=== PATIENT | female | born 1945 | race Caucasian/White ===

== ENCOUNTER 2018-07-11 16:21 | Emergency (ER) | payer MEDICARE, OTHER ==
[~2018-07-11] VITALS: Ht 154.9 cm; Wt 74.1 kg
[2018-07-11] MEDS ORDERED: BIOTIN10000 MC1 PO (16:31)
[2018-07-11] MEDS ORDERED: HUMIRA40 MG/0.1 SQ (16:31)
[2018-07-11] MEDS ORDERED: CALCIUM CARBON650 M2 (16:31)
[2018-07-11] MEDS ORDERED: LIPITOR20 MG PO (16:31)
[2018-07-11] MEDS ORDERED: ATARAX 10MG10 MG/TAB PO (16:32)
[2018-07-11] MEDS ORDERED: VOLTAREN GEL 1%1 TU TP (16:32)
[2018-07-11] MEDS ORDERED: FERROUS SU325 MG/TAB PO (16:32)
[2018-07-11] MEDS ORDERED: PRINIVIL10 MG PO (16:33)
[2018-07-11] MEDS ORDERED: GLUCOPHAGE500 MG/TAB PO (16:33)
[2018-07-11] MEDS ORDERED: MULTI VITAMINS1 TAB PO (16:34)
[2018-07-11] MEDS ORDERED: OSTEO-BI-FLEX 21 TAB PO (16:34)
[2018-07-11] MEDS ORDERED: TOPROL XL 25MG25 MG PO (16:34)
[2018-07-11] MEDS ORDERED: NATURAL POTASS595 MG (16:35)
[2018-07-11] MEDS ORDERED: DITROPAN 5MG TAB5 MG PO (16:35)
[2018-07-11] MEDS ORDERED: NASACORT OTC NS (16:37)
[2018-07-11] MEDS ORDERED: EFFEXOR 75M75 MG/TAB PO (16:37)
[2018-07-11] MEDS ORDERED: TRIAMCINOLONE A15 G3 TP (16:37)
[2018-07-11] MEDS ORDERED: CRANBERRY500 M3 PO (16:38)
[2018-07-11] MEDS ORDERED: AYR SALINE MIST50 ML NS (16:42)
[2018-07-11] MEDS ORDERED: VITAMIN D31000 I1 PO (16:42)
[2018-07-11] MEDS ORDERED: VITAMIND3 5000 (16:43)
[2018-07-11 17:01] LABS: BASO # 0.1 (0.0-0.2); BASO % 0.6 % (0.0-2.0); EOS # 0.2 (0.0-0.7); EOS % 2.6 % (0-4.0); GRAN # 5.1 (1.4-6.5); GRAN % 59.5 % (42.2-75.2); HEMOGLOBIN 11.8 g/dl (12.5-16.0); LYMPH # 2.5 (1.2-3.4); LYMPH % 29.5 % (20.0-51.0); MEAN CELL VOLUME 93 fl (80.0-100.0); MEAN CORPUSCULAR HEMOGLOBIN 30 pg (27.0-31.0); MEAN CORPUSCULAR HGB CONC 33 g/dl (33.0-37.0); MEAN PLATELET VOLUME 10.2 fl (7.4-10.4); MONO # 0.7 (0.1-0.6); MONO % 7.6 % (1.7-9.3); PLATELET COUNT 232 K/mm3 (130-400); RED BLOOD COUNT 3.88 M/mm3 (4.10-5.30); REDCELL DISTRIBUTION WIDTH-CV 13.3 % (11.5-14.5)
[2018-07-11 17:09] LABS: PROTHROMBIN TIME 11.3 SECONDS (9.7-12.8)
[2018-07-11 17:15] LABS: HEMATOCRIT 36.1 % (37.0-47.0)
[2018-07-11 17:42] LABS: ALBUMIN 4.1 gm/dL (3.5-5.0); BILIRUBIN,TOTAL 0.3 mg/dL (0.0-1.0); CALCIUM 9.1 mg/dL (8.4-10.2); CREATININE, serum 0.72 mg/dL (0.52-1.25); POTASSIUM 4.1 mmol/L (3.4-5.0); TOTAL PROTEIN 6.9 gm/dL (6.4-8.2)
[2018-07-11 18:51] VITALS: BP 153/70; PULSE 80; TEMP 98.7
== END 2018-07-11 18:53 | disposition home or self-care (01) ==
LOC: COL.ER 16:21
PROVIDERS: Emergency Medicine
DX: R04.0 Epistaxis (principal); I25.10 Atherosclerotic heart disease of native coronary artery without angina pectoris
CPT/HCPCS: J2060

== ENCOUNTER 2018-09-16 07:21 | Day surgery (SDC) | payer MEDICARE, OTHER ==
[2018-09-16] VITALS (10 sets, daily range): BP systolic 142–177; BP diastolic 78–94; PULSE 66–83; TEMP 98.2
[~2018-09-16] VITALS: Ht 155 cm; Wt 75.3 kg
[~2018-09-16 07:21] MED LIST: ATARAX 10MG10 MG/TAB PO; AYR SALINE MIST50 ML NS; BIOTIN10000 MC1 PO; CALCIUM CARBON650 M2; CRANBERRY500 M3 PO; DITROPAN 5MG TAB5 MG PO; EFFEXOR 75M75 MG/TAB PO; FERROUS SU325 MG/TAB PO; GLUCOPHAGE500 MG/TAB PO; HUMIRA40 MG/0.1 SQ; LIPITOR20 MG PO; MULTI VITAMINS1 TAB PO; NASACORT OTC NS; NATURAL POTASS595 MG; OSTEO-BI-FLEX 21 TAB PO; PRINIVIL10 MG PO; TOPROL XL 25MG25 MG PO; TRIAMCINOLONE A15 G3 TP; VITAMIN D31000 I1 PO; VITAMIND3 5000; VOLTAREN GEL 1%1 TU TP
[2018-09-16 08:11] LABS: HEMATOCRIT 39.4 % (37.0-47.0); MEAN CELL VOLUME 91 fl (80.0-100.0); MEAN CORPUSCULAR HEMOGLOBIN 30 pg (27.0-31.0); MEAN CORPUSCULAR HGB CONC 33 g/dl (33.0-37.0); MEAN PLATELET VOLUME 10.4 fl (7.4-10.4); PLATELET COUNT 224 K/mm3 (130-400); RED BLOOD COUNT 4.33 M/mm3 (4.10-5.30); REDCELL DISTRIBUTION WIDTH-CV 12.9 % (11.5-14.5)
[2018-09-16 08:26] LABS: INR 1.1 (0.8-3.0)
[2018-09-16 08:29] LABS: CALCIUM 9.3 mg/dL (8.4-10.2); CREATININE, serum 0.69 mg/dL (0.52-1.25); POTASSIUM 3.9 mmol/L (3.4-5.0)
--- NOTE | 2018-09-16 09:24 | NUR ---
ALL SEDATION MEDICATIONS WILL BE GIVEN WITH VERBAL ORDER FROM MD FLETCHER. SEE MERGE FOR ADMIN TIMES. SEE MERGE FOR RASS AND MODERATE SEDATION ASSESSMENTS DURING AND POST PROCEDURE.
--- NOTE | 2018-09-16 09:51 | NUR ---
Back from test lab technician. Drowsy but oriented. VSS. Right wrist Tband with 13 cc air CD&I, cap refill < 3 secs and strong pulses.
--- NOTE | 2018-09-16 13:03 | NUR ---
TR band deflated, no bleeding noted, pressure dressing applied. INT discontinued intact.
--- NOTE | 2018-09-16 13:15 | NUR ---
Discharge instructions given. Transferred to private car by alise
== END 2018-09-16 13:15 | disposition home or self-care (01) ==
LOC: COL.CAR 07:21
PROVIDERS: Internal Medicine Cardiovascular Disease
DX: I25.10 Atherosclerotic heart disease of native coronary artery without angina pectoris (principal); R94.39 Abnormal result of other cardiovascular function study; E78.5 Hyperlipidemia, unspecified; I10 Essential (primary) hypertension; Z88.1 Allergy status to other antibiotic agents; Z88.5 Allergy status to narcotic agent; Z88.0 Allergy status to penicillin; Z88.2 Allergy status to sulfonamides; Z95.5 Presence of coronary angioplasty implant and graft
CPT/HCPCS: C1769; C1894; J1644; J2250; J3010; Q9967

== ENCOUNTER 2018-10-20 08:10 | Day surgery (SDC) | payer MEDICARE, OTHER ==
[~2018-10-20] VITALS: Ht 154.9 cm; Wt 74.3 kg
[2018-10-20 08:37] VITALS: BP 185/95; PULSE 70; TEMP 97.5
--- NOTE | 2018-10-20 09:15 | NUR ---
DAUGHTER HERE AND DISCUSSED HAVING PROCEDURE. PATIENT STATED SHE WAS SO WORRIED ABOUT THE RESULTS THAN HAVING THE PROCEDURE. CURRENTLY TALKING WITH SON ON THE PHONE
--- NOTE | 2018-10-20 09:16 | NUR ---
TO RM 1 AT 0715- CALL LIGHT IN REACH DAUGHTER AT BEDSIDE.
[2018-10-20 10:25] VITALS: BP 146/72; PULSE 82; TEMP 98.3
--- NOTE | 2018-10-20 10:25 | NUR ---
TO BAY 1 PER CART FROM ENDOSCOPY. PATIENT VERY PLEASANT AND RELAXED. AMBULATED TO RECLINER WITH ASSIST AND TOLERATED WELL. DAUGHTER AT BEDSIDE
[2018-10-20 10:40] VITALS: BP 162/80; PULSE 79
--- NOTE | 2018-10-20 10:40 | NUR ---
RECEIVED DIET PEPSI
--- NOTE | 2018-10-20 11:17 | NUR ---
ATE 100% AND RECEIVED 2ND DIET PEPSI
--- NOTE | 2018-10-20 11:18 | NUR ---
DISCONTINED IV AND INT- CATHETER INTACT PATIENT GETTING DRESSED
--- NOTE | 2018-10-20 11:23 | NUR ---
DR LEONG TALKING TO PATIENT AND DAUGHTER
--- NOTE | 2018-10-20 11:30 | NUR ---
RECEIVED DISCHARGE INSTRUCTIONS AND VERBALIZED UNDERSTANDING. DAUGHTER SANCHO AT BEDSIDE.
--- NOTE | 2018-10-20 11:40 | NUR ---
DISCHARGED PER WC BY NURSING STAFF TO PRIVATE CAR IN CARE OF DAUGHTER
== END 2018-10-20 11:40 | disposition home or self-care (01) ==
LOC: SDCO 08:10
DX: K64.4 Residual hemorrhoidal skin tags (principal); I25.10 Atherosclerotic heart disease of native coronary artery without angina pectoris; Z95.5 Presence of coronary angioplasty implant and graft; Z85.828 Personal history of other malignant neoplasm of skin; L40.9 Psoriasis, unspecified; Z79.899 Other long term (current) drug therapy; Z88.0 Allergy status to penicillin; Z88.2 Allergy status to sulfonamides
CPT/HCPCS: OP; J2250; J2405; J3010; J7030

== ENCOUNTER 2019-10-19 09:26 | Emergency (ER) | payer MEDICARE, OTHER ==
[~2019-10-19] VITALS: Ht 154.9 cm; Wt 75.0 kg
[2019-10-19 09:37] VITALS: TEMP 97.7
[2019-10-19 09:52] LABS: BASO # 0.1 (0.0-0.2); BASO % 0.5 % (0.0-2.0); EOS # 0.3 (0.0-0.7); GRAN # 5.6 (1.4-6.5); GRAN % 59.2 % (42.2-75.2); HEMATOCRIT 43.4 % (37.0-47.0); HEMOGLOBIN 14.9 g/dl (12.5-16.0); LYMPH # 2.7 (1.2-3.4); LYMPH % 28.8 % (20.0-51.0); MEAN CELL VOLUME 92 fl (80.0-100.0); MEAN CORPUSCULAR HEMOGLOBIN 32 pg (27.0-31.0); MEAN CORPUSCULAR HGB CONC 34 g/dl (33.0-37.0); MEAN PLATELET VOLUME 9.9 fl (7.4-10.4); MONO # 0.8 (0.1-0.6); MONO % 7.9 % (1.7-9.3); PLATELET COUNT 207 K/mm3 (130-400); REDCELL DISTRIBUTION WIDTH-CV 12.9 % (11.5-14.5)
[2019-10-19 10:01] LABS: ALANINE AMINOTRANSFERASE 24 U/L (4-34); ALBUMIN 4.8 gm/dL (3.5-5.0); ALKALINE PHOSPHATASE 112 U/L (50-136); ANION GAP 12 mmol/L (7-16); AST,SGOT 32 U/L (15-37); BILIRUBIN,TOTAL 0.8 mg/dL (0.0-1.0); BLOOD UREA NITROGEN 20 mg/dL (7-17); CALCIUM 9.7 mg/dL (8.4-10.2); CARBON DIOXIDE 26 mmol/L (22-30); CHLORIDE 98 mmol/L (98-107); CREATININE, serum 0.65 (0.52-1.25); GLUCOSE 139 mg/dL (74-106); SODIUM 136 mmol/L (137-145); TOTAL PROTEIN 7.7 gm/dL (6.4-8.2)
[2019-10-19 10:04] LABS: PROTHROMBIN TIME 11.5 SECONDS (9.7-12.8)
[2019-10-19 10:07] LABS: PARTIAL THROMBOPLASTIN TIME 28.1 SECONDS (26.0-37.0)
[2019-10-19 10:13] LABS: TROPONIN-I < 0.012 ng/mL (0.000-0.035)
[2019-10-19] MEDS ORDERED: ELIQUIS 5MG PO (12:10)
[2019-10-19 12:55] VITALS: BP 110/63; PULSE 60
== END 2019-10-19 12:55 | disposition home or self-care (01) ==
LOC: COL.ER 09:26
PROVIDERS: Family Medicine
DX: I48.20 Chronic atrial fibrillation, unspecified (principal); E11.9 Type 2 diabetes mellitus without complications; I25.10 Atherosclerotic heart disease of native coronary artery without angina pectoris; Z95.5 Presence of coronary angioplasty implant and graft; Z79.84 Long term (current) use of oral hypoglycemic drugs; Z79.899 Other long term (current) drug therapy
CPT/HCPCS: J7040

== ENCOUNTER 2020-02-12 09:59 | Emergency (ER) | payer MEDICARE, OTHER ==
[~2020-02-12] VITALS: Ht 154.9 cm; Wt 77.3 kg
[~2020-02-12 09:59] MED LIST changes: +ELIQUIS 5MG PO
[2020-02-12 10:08] VITALS: TEMP 98.7
[2020-02-12 13:29] VITALS: BP 132/82; PULSE 84
== END 2020-02-12 10:55 | disposition home or self-care (01) ==
LOC: COL.ER 09:59
DX: S05.02XA Injury of conjunctiva and corneal abrasion without foreign body, left eye, initial encounter (principal); L03.211 Cellulitis of face; Z79.01 Long term (current) use of anticoagulants; Z88.0 Allergy status to penicillin; Z88.2 Allergy status to sulfonamides; Z88.6 Allergy status to analgesic agent; X58.XXXA Exposure to other specified factors, initial encounter

== ENCOUNTER 2020-03-16 21:07 | Emergency (ER) | payer MEDICARE, OTHER ==
[~2020-03-16] VITALS: Ht 154.9 cm; Wt 77.3 kg
[2020-03-16 21:17] VITALS: TEMP 98.3
[2020-03-16] MEDS ORDERED: COUMADIN 1MG1 MG/TAB PO (21:54)
[2020-03-16 21:57] LABS: PROTHROMBIN TIME 33.7 SECONDS (9.7-12.8)
[2020-03-16] MEDS ORDERED: NORCO 325 MG-51 TAB PO (22:00)
[2020-03-16] MEDS ORDERED: CLEOCIN HCL300 MG PO (22:00)
[2020-03-16 22:10] VITALS: BP 153/109; PULSE 79
== END 2020-03-16 22:12 | disposition home or self-care (01) ==
LOC: COL.ER 21:07
PROVIDERS: Emergency Medicine
DX: R04.0 Epistaxis (principal); I48.91 Unspecified atrial fibrillation; Z79.01 Long term (current) use of anticoagulants; Z88.0 Allergy status to penicillin; Z88.2 Allergy status to sulfonamides; Z88.6 Allergy status to analgesic agent; Z88.1 Allergy status to other antibiotic agents

== ENCOUNTER 2020-06-29 08:06 | Outpatient (CLI) | payer MEDICARE, OTHER ==
[~2020-06-29] VITALS: Ht 154.9 cm; Wt 78.8 kg
[2020-06-29] VITALS (7 sets, daily range): BP systolic 122–154; BP diastolic 67–101; PULSE 69–81; TEMP 99
[~2020-06-29 08:06] MED LIST changes: +CLEOCIN HCL300 MG PO; +COUMADIN 1MG1 MG/TAB PO; +NORCO 325 MG-51 TAB PO; -VITAMIND3 5000; +VITAMIND3 5000 PO
[2020-06-29 08:50] LABS: HEMATOCRIT 42.9 % (37.0-47.0); HEMOGLOBIN 14.5 g/dl (12.5-16.0); MEAN CELL VOLUME 96 fl (80.0-100.0); MEAN CORPUSCULAR HEMOGLOBIN 33 pg (27.0-31.0); MEAN CORPUSCULAR HGB CONC 34 g/dl (33.0-37.0); PLATELET COUNT 210 K/mm3 (130-400); RED BLOOD COUNT 4.45 M/mm3 (4.10-5.30); REDCELL DISTRIBUTION WIDTH-CV 13.3 % (11.5-14.5)
[2020-06-29 09:02] LABS: INR 1.6 (0.8-3.0); PROTHROMBIN TIME 17.9 SECONDS (9.7-12.8)
[2020-06-29] MEDS ORDERED: PREDFORTE5ML OS (09:03)
[2020-06-29] MEDS ORDERED: VIGAMOX 0.5% 3 M3 ML OP (09:03)
[2020-06-29 09:04] LABS: CALCIUM 9.4 mg/dL (8.4-10.2); CREATININE, serum 0.81 (0.52-1.25); POTASSIUM 4.3 mmol/L (3.4-5.0)
[2020-06-29] MEDS ORDERED: ZOVIRAX800 MG PO (09:04)
[2020-06-29] MEDS ORDERED: MAXITROL OPHTH3.5 GM OP (09:04)
[2020-06-29] MEDS ORDERED: PRIL40 PO (09:07)
--- NOTE | 2020-06-29 12:44 | NUR ---
Discharge instructions given to pt.Pt verbalizes understanding.INT removed,catheter tip intact.
--- NOTE | 2020-06-29 13:39 | NUR ---
Pt escorted out via wheelchair by this nurse.
== END 2020-06-29 13:41 | disposition home or self-care (01) ==
LOC: COL.RAD 08:06
PROVIDERS: Internal Medicine Adult Congenital Heart Disease
DX: Z01.810 Encounter for preprocedural cardiovascular examination (principal); I08.1 Rheumatic disorders of both mitral and tricuspid valves; I48.91 Unspecified atrial fibrillation
CPT/HCPCS: J2704

== ENCOUNTER 2020-08-16 08:56 | Outpatient (CLI) | payer MEDICARE, OTHER ==
--- NOTE | 2020-08-09 09:51 | NUR ---
pt was spoken to and she will be here on friday.
[~2020-08-16] VITALS: Ht 154.9 cm; Wt 79.6 kg
[~2020-08-16 08:56] MED LIST changes: +MAXITROL OPHTH3.5 GM OP; +PREDFORTE5ML OS; +PRIL40 PO; +VIGAMOX 0.5% 3 M3 ML OP; +ZOVIRAX800 MG PO
[2020-08-16 09:27] LABS: HEMOGLOBIN 13.2 g/dl (12.5-16.0); MEAN CELL VOLUME 99 fl (80.0-100.0); MEAN CORPUSCULAR HEMOGLOBIN 33 pg (27.0-31.0); MEAN CORPUSCULAR HGB CONC 33 g/dl (33.0-37.0); MEAN PLATELET VOLUME 10.4 fl (7.4-10.4); PLATELET COUNT 235 K/mm3 (130-400); RED BLOOD COUNT 4.03 M/mm3 (4.10-5.30); REDCELL DISTRIBUTION WIDTH-CV 12.9 % (11.5-14.5)
[2020-08-16] MEDS ORDERED: ASPIRIN E.C. 8181 MG PO (09:33)
[2020-08-16 09:40] LABS: CALCIUM 9.3 mg/dL (8.4-10.2); CREATININE, serum 0.79 (0.52-1.25); POTASSIUM 4.3 mmol/L (3.4-5.0)
[2020-08-16 09:41] LABS: INR 1.2 (0.8-3.0); PROTHROMBIN TIME 13.1 SECONDS (9.7-12.8)
[2020-08-16 10:21] VITALS: BP 123/80; PULSE 66; TEMP 98
--- NOTE | 2020-08-16 10:21 | NUR ---
Report from Sergio LUTHER. VSS. pt resting in bed.
[2020-08-16 10:36] VITALS: BP 120/78; PULSE 62; TEMP 98
[2020-08-16 10:51] VITALS: BP 123/80; PULSE 66; TEMP 98
[2020-08-16 11:06] VITALS: BP 127/65; PULSE 65; TEMP 98
[2020-08-16 11:36] VITALS: BP 128/70; PULSE 62; TEMP 98
[2020-08-16 11:50] VITALS: BP 124/72; PULSE 70; TEMP 98
--- NOTE | 2020-08-16 11:50 | NUR ---
INT discontinued intact. Discharge instructions given. transferred to private car by alise
== END 2020-08-16 11:50 | disposition home or self-care (01) ==
LOC: COL.RAD 08:56
PROVIDERS: Internal Medicine Cardiovascular Disease
DX: Z95.818 Presence of other cardiac implants and grafts (principal)
CPT/HCPCS: J2704; J7120

== ENCOUNTER → 2021-03-26 | Outpatient (CLI) | payer MEDICARE, OTHER ==
[~2021-03-26] MED LIST changes: +ASPIRIN E.C. 8181 MG PO; +FERROUSAL325 MG PO; +MASON NATURAL S1 CAP PO; -NATURAL POTASS595 MG; +NATURAL POTASS595 MG PO; +TRIAMCINOLONE A15 GM TP; +VTAMINC250TA PO
== END ==
LOC: COL.RAD 11:30
DX: M47.816 Spondylosis without myelopathy or radiculopathy, lumbar region (principal); M43.16 Spondylolisthesis, lumbar region; M48.061 Spinal stenosis, lumbar region without neurogenic claudication

== ENCOUNTER → 2021-04-11 | Outpatient (CLI) | payer MEDICARE, OTHER ==
[~2021-04-11] VITALS: Ht 154.9 cm; Wt 75.8 kg
[2021-04-11 10:10] VITALS: BP 132/74; PULSE 69; TEMP 98.3
[2021-04-11 10:45] VITALS: BP 133/73; PULSE 76
--- NOTE | 2021-04-11 11:00 | NUR ---
Pt reports legs continue to be tingly. Pt continues to workon the peanut butter and cracker.
--- NOTE | 2021-04-11 11:15 | NUR ---
Pts legs continue to feel tingyl and unsteady when standing. Denies pain.
--- NOTE | 2021-04-11 11:30 | NUR ---
pt remains unchanged. Denies pain.
--- NOTE | 2021-04-11 12:00 | NUR ---
Pt reports legs are coming back. Pt reports buttocks still numb.
--- NOTE | 2021-04-11 12:30 | NUR ---
Pts eyes closed. No apparent discomfort.
--- NOTE | 2021-04-11 13:00 | NUR ---
Pt able to bear weight on legs, but reports legs feel funny and buttocks continues to be numb.
--- NOTE | 2021-04-11 13:30 | NUR ---
Pt able to walk across floor while holding nurses hand. Denies pain at this time. Pt reports being able to feel buttocks and no further tingling in feet. Pt calling for ride to come and get her.
--- NOTE | 2021-04-11 13:50 | NUR ---
Pt out to front entrance awaiting ride home. Pt out to car per wheelchair. Pt up and into car with minimal assistance. Denies pain at this time.
== END ==
LOC: COL.RAD 09:00
DX: M54.50 Low back pain, unspecified (principal)
CPT/HCPCS: J3301

== ENCOUNTER → 2021-07-23 | Outpatient (CLI) | payer MEDICARE, OTHER ==
[~2021-07-23] VITALS: Ht 154.9 cm; Wt 77.4 kg
[2021-07-23 07:49] VITALS: BP 149/86; PULSE 84; TEMP 98.1
[2021-07-23 08:39] VITALS: BP 160/79; PULSE 70
--- NOTE | 2021-07-23 08:49 | NUR ---
PT REPORTS THAT SHE IS DOING BETTER. NO PAIN OR DISCOMFORT IN HER BACK.
== END ==
LOC: COL.RAD 07:00
DX: M54.50 Low back pain, unspecified (principal)

== ENCOUNTER → 2021-07-23 | Outpatient (CLI) | payer MEDICARE, OTHER | LOC: COL.RAD 07:35 | DX: M54.50 Low back pain, unspecified (principal) | CPT/HCPCS: J3301 ==

== ENCOUNTER 2021-07-25 07:50 | Outpatient (CLI) | payer MEDICARE, OTHER ==
[~2021-07-25] VITALS: Ht 155 cm; Wt 76.0 kg
[2021-07-25 08:43] VITALS: BP 134/86; PULSE 63; TEMP 97.8
[2021-07-25 08:48] LABS: HEMATOCRIT 39.2 % (37.0-47.0); HEMOGLOBIN 12.9 g/dl (12.5-16.0); MEAN CELL VOLUME 98 fl (80.0-100.0); MEAN CORPUSCULAR HEMOGLOBIN 32 pg (27-31); MEAN CORPUSCULAR HGB CONC 33 g/dl (33.0-37.0); PLATELET COUNT 260 K/mm3 (130-400)
[2021-07-25 08:58] LABS: CALCIUM 9.5 mg/dL (8.4-10.2); CREATININE, serum 0.79 mg/dL (0.57-1.11); POTASSIUM 4.2 mmol/L (3.5-4.5)
[2021-07-25 09:16] LABS: INR 1.1 (0.8-3.0); PROTHROMBIN TIME 11.7 SECONDS (9.7-12.8)
[2021-07-25 09:19] LABS: PARTIAL THROMBOPLASTIN TIME 25.7 SECONDS (26.0-37.0)
[2021-07-25 09:45] VITALS: BP 139/79; PULSE 68
--- NOTE | 2021-07-25 09:45 | NUR ---
report from Lena LUTHER, pt is resting in bed, hob elevated, awake and alert, no c/o, VSS, requested soda, call light in reach
[2021-07-25 10:00] VITALS: BP 130/79; PULSE 69
[2021-07-25 10:15] VITALS: BP 106/89; PULSE 68
--- NOTE | 2021-07-25 10:30 | NUR ---
pt sat up on side of bed, tolerated well, walked to b/r, gait stable. Dr yLn in earlier to talk with pt about procedure
[2021-07-25 10:45] VITALS: BP 120/78; PULSE 68
--- NOTE | 2021-07-25 10:45 | NUR ---
reviewed discharge inst. with pt on YING, also reviewed moderate sedation precautions, health summary sheet given, no follow up appt at this time, pt has Dr office number, INT dc'd intact and pt discharged via w/c to [facility] wagon driver at 1100
== END 2021-07-25 11:00 | disposition home or self-care (01) ==
LOC: COL.RAD 07:50
PROVIDERS: Internal Medicine Cardiovascular Disease
DX: Z20.822 Contact with and (suspected) exposure to COVID-19 (principal); Z98.890 Other specified postprocedural states
CPT/HCPCS: J2704

== ENCOUNTER 2021-11-17 10:21 | Observation (INO) | payer MEDICARE, OTHER ==
[~2021-11-17] VITALS: Ht 154.9 cm; Wt 75.0 kg
[2021-11-17] MEDS ORDERED: PROBIOTIC DIGE1 EACH PO (10:48)
[2021-11-17 11:07] LABS: BASO % 0.5 % (0.0-2.0); EOS # 0.2 K/mm3 (0.0-0.7); EOS % 2.9 % (0.0-4.0); GRAN # 4.4 K/mm3 (1.4-6.5); GRAN % 55.7 % (42.2-75.2); HEMATOCRIT 43.3 % (37.0-47.0); HEMOGLOBIN 14.9 g/dl (12.5-16.0); LYMPH # 2.6 K/mm3 (1.2-3.4); LYMPH % 32.6 % (20.0-51.0); MEAN CELL VOLUME 93 fl (80.0-100.0); MEAN CORPUSCULAR HEMOGLOBIN 32 pg (27-31); MEAN CORPUSCULAR HGB CONC 34 g/dl (33.0-37.0); MEAN PLATELET VOLUME 9.9 fl (7.4-10.4); MONO # 0.6 K/mm3 (0.1-0.6); MONO % 7.9 % (1.7-9.3); PLATELET COUNT 262 K/mm3 (130-400); RED BLOOD COUNT 4.64 M/mm3 (4.10-5.30); REDCELL DISTRIBUTION WIDTH-CV 12.4 % (11.5-14.5)
[2021-11-17 11:14] LABS: INR 1.1 (0.8-3.0); PROTHROMBIN TIME 12.5 SECONDS (9.7-12.8)
[2021-11-17 11:23] LABS: ALBUMIN 4.3 gm/dL (3.4-4.8); BILIRUBIN,TOTAL 0.6 mg/dL (0.2-1.2); CALCIUM 9.6 mg/dL (8.4-10.2); CREATININE, serum 0.85 mg/dL (0.57-1.11); POTASSIUM 4.1 mmol/L (3.5-4.5); TOTAL PROTEIN 7.5 gm/dL (6.2-8.1)
[2021-11-17 11:31] LABS: TROPONIN-I 0.067 ng/mL (0.00-0.033)
--- NOTE | 2021-11-17 14:00 | NUR ---
Admission assessment completed, alert/oriented, vital signs stable, heart rate imrpoved 80-90's/ still in A.fib, lungs CTA/ no resp.difficulty noted, she feels much better after having recieved meds in the ER and IVF, reviewed meds/allergies/pharm with her, she is toleratign PO intake, denies needs
[2021-11-17 16:00] VITALS: BP 118/74; PULSE 80
[2021-11-17 19:32] VITALS: BP 153/71; PULSE 92; TEMP 97.7
[2021-11-17 23:39] VITALS: BP 106/64; PULSE 79; TEMP 98.6
[2021-11-18 04:09] VITALS: BP 134/60; PULSE 78; TEMP 98
--- NOTE | 2021-11-18 06:30 | NUR ---
ASSESSMENT COMPLETE FOR THIS SHIFT. PT RESTING IN HER RECLINER KNITTING. PT COMPLAINED OF SOME GENERALIZED PAIN SHE DESCRIBED MUSCLE TIGHTENING. PT GIVEN TYLENOL FOR PAIN. PT FELT TYLENOL WAS HELPFUL. PT DENIED PALPITATIONS, SOB, N,V,D OR DIZZINESS. PT EXPRESSED NO OTHER NEEDS AT THIS TIME. CALL LIGHT WITHIN REACH.
[2021-11-18 07:07] LABS: BASO % 0.2 % (0.0-2.0); EOS # 0.4 K/mm3 (0.0-0.7); EOS % 4.3 % (0.0-4.0); GRAN # 4.3 K/mm3 (1.4-6.5); HEMATOCRIT 40.4 % (37.0-47.0); HEMOGLOBIN 13.5 g/dl (12.5-16.0); LYMPH % 35.8 % (20.0-51.0); MEAN CELL VOLUME 95 fl (80.0-100.0); MEAN CORPUSCULAR HEMOGLOBIN 32 pg (27-31); MEAN CORPUSCULAR HGB CONC 33 g/dl (33.0-37.0); MEAN PLATELET VOLUME 10.3 fl (7.4-10.4); MONO # 0.6 K/mm3 (0.1-0.6); MONO % 7.2 % (1.7-9.3); PLATELET COUNT 235 K/mm3 (130-400); RED BLOOD COUNT 4.25 M/mm3 (4.10-5.30); REDCELL DISTRIBUTION WIDTH-CV 12.7 % (11.5-14.5)
[2021-11-18 07:09] LABS: CALCIUM 9.3 mg/dL (8.4-10.2); CREATININE, serum 0.74 mg/dL (0.57-1.11); POTASSIUM 4.1 mmol/L (3.5-4.5)
[2021-11-18 07:20] LABS: TROPONIN-I 0.105 ng/mL (0.00-0.033)
[2021-11-18 09:32] VITALS: BP 146/70; PULSE 81; TEMP 97.8
--- NOTE | 2021-11-18 09:40 | NUR ---
Shift assessment complete. Pt sitting up on side of bed. A&Ox4. Heart RRR. Lungs CTA. Denies chest pain, dizziness, SOA. C/o headache this morning, tylenol given per orders. Denies further needs at this time. Continuing to monitor.
--- NOTE | 2021-11-18 12:30 | NUR ---
Discharge instructions discussed with pt and all questions answered. IV to left forearm removed with tip intact. Pt waiting in room for ride to arrive.
--- NOTE | 2021-11-18 13:36 | NUR ---
SW met with the pt to complete intake. Pt lives at home and has a life partner, kaye [phone]. Pt is independent on all ADLs and does not use and DME. Pt PCP is Dr. Light and gets medications from [facility], no trouble obtaining it. Pt reports no [facility] and is not interested in one at this time. No other needs stated. Sw await further recommendations and follow up as needed. DC: Home
--- NOTE | 2021-11-18 13:40 | NUR ---
Pt escorted out with all belongings at this time.
== END 2021-11-18 13:40 | disposition home or self-care (01) ==
LOC: COL.ER 10:21 → MEDICAL 12:04
PROVIDERS: Emergency Medicine; ADMIT Internal Medicine
DX: I48.0 Paroxysmal atrial fibrillation (principal); I24.8 Other forms of acute ischemic heart disease; R68.84 Jaw pain; R79.0 Abnormal level of blood mineral; I10 Essential (primary) hypertension; E78.5 Hyperlipidemia, unspecified; F32.A Depression, unspecified; K21.9 Gastro-esophageal reflux disease without esophagitis; Z79.899 Other long term (current) drug therapy
CPT/HCPCS: 99222-AI; 99239; G0378; J1650; J7030

== ENCOUNTER → 2021-12-07 | Outpatient (CLI) | payer MEDICARE, OTHER ==
[~2021-12-07] VITALS: Ht 154.9 cm; Wt 75.0 kg
[~2021-12-07] MED LIST changes: +OTEZLA PO; +PROBIOTIC DIGE1 EACH PO; +TYLENOL 8 HR PO
[2021-12-07 09:53] VITALS: BP 150/90; PULSE 75; TEMP 98
[2021-12-07 11:20] VITALS: BP 133/78; PULSE 82
== END ==
LOC: COL.RAD 09:30
DX: M54.50 Low back pain, unspecified (principal)
CPT/HCPCS: J3301; Q9965

== ENCOUNTER 2022-09-20 07:44 | Outpatient (CLI) | payer MEDICARE, OTHER ==
[~2022-09-20] VITALS: Ht 154.9 cm; Wt 79.7 kg
[2022-09-20] VITALS (7 sets, daily range): BP systolic 114–148; BP diastolic 66–97; PULSE 61–71; TEMP 97.6
[~2022-09-20 07:44] MED LIST changes: -MASON NATURAL S1 CAP PO
[2022-09-20] MEDS ORDERED: ZOVIRAX400 MG PO (08:13)
[2022-09-20] MEDS ORDERED: TOPROL XL 50MG50 MG PO (08:16)
[2022-09-20] MEDS ORDERED: GLUCOSAMINE & C1 TAB PO (08:19)
[2022-09-20] MEDS ORDERED: GEMTESA75 MG PO (08:22)
--- NOTE | 2022-09-20 11:18 | NUR ---
Silvia did fine during her post myelogram observation period. vitals were stable. Pt did report some nausea after procedure, but this improved with some crackers and diet pepsi. At time of her departure pt still did have mild nausea, but she was okay with going home and resting, with plan to call Dr. Lihgt as needed. Pt was up with slow but steady gait, she was assisted to bathroom via wheelchair. She was able to walk in to restroom and voided with no problem. No changes to her baseline cms to lower extremities. I reviewed dc/fu and rx instructions with her and she verbalized understanding.
== END 2022-09-20 12:08 | disposition home or self-care (01) ==
LOC: COL.RAD 07:44
DX: M48.061 Spinal stenosis, lumbar region without neurogenic claudication (principal); Z95.818 Presence of other cardiac implants and grafts
CPT/HCPCS: Q9965

== ENCOUNTER 2023-08-26 09:19 | Day surgery (SDC) | payer MEDICARE, OTHER ==
[~2023-08-26] VITALS: Ht 152.4 cm; Wt 70.0 kg
[~2023-08-26 09:19] MED LIST changes: +GEMTESA75 MG PO; +GLUCOSAMINE & C1 TAB PO; +LR 1,000 ML IV SCH; +TOPROL XL 50MG50 MG PO; +ZOVIRAX400 MG PO
[2023-08-26] MEDS ORDERED: Lidocaine PF 2% (20 MG/ML) 5 ML VIAL ONE (09:44)
[2023-08-26] MEDS ORDERED: NS 10 ML IV ONE (09:44)
[2023-08-26] MEDS ORDERED: Ondansetron 4 MG/2 ML VIAL IV PRN (10:45)
[2023-08-26] MEDS ORDERED: Meperidine 50 MG/ML 1 ML VIAL IV PRN (10:45)
[2023-08-26] MEDS ORDERED: HYDROmorphone 2 MG/1 ML VIAL IV PRN (10:45)
[2023-08-26] MEDS ORDERED: Lidocaine 2% (20 MG/ML) 20 ML UROJET UR ONE (11:07)
[2023-08-26 11:17] VITALS: BP 139/95; PULSE 70; TEMP 97
[2023-08-26 11:30] VITALS: BP 130/85; PULSE 72
[2023-08-26 11:45] VITALS: BP 157/90; PULSE 74
[2023-08-26 12:00] VITALS: BP 144/67; PULSE 70
--- NOTE | 2023-08-26 12:30 | NUR ---
1117 RETURNS TO ROOM 5 FROM OR PER CART WITH HOB ELEVATED 30 DEGREES. RESP UNLABORED. VITAL SIGNS OBTAINED. ABD SOFT, DENIES PAIN OR URINARY URGENCY. CALL LIGHT AT SIDE. 1130 INCREASED AWARENESS. HOB ELEVATED 70 DEGREES. TOLERATES PO WATER WITHOUT NAUSEA 1145 AWAKE, ALERT. DENIES DIACOMFORT OR URINARY URGENCY. TOLERATES PO MUFFIN AND COFFEE 1205 DISCHARGE INSTRUCTIONS REVIEWED. PATIENT VERBALIZES UNDERSTANDING. COPY PROVIDED IN DISCHARGE FOLDER 1215 SITS ON EDGE OF BED. DRESSES SELF, THEN AMBULATES TO BATHROOM WITH STANDBY ASSIST. ADMITS TO VOIDING WITHOUT DIFFICULTY.
[2023-08-26] MEDS ORDERED: LOPRESSOR 550 MG/TAB PO (14:54)
[2023-08-26] MEDS ORDERED: CRANBERRY500 M3 PO (14:55)
[2023-08-26] MEDS ORDERED: ATIVAN 0.50.5 MG/TAB PO (14:56)
[2023-08-26] MEDS ORDERED: IBU800 M1 PO (14:56)
== END 2023-08-26 12:30 | disposition home or self-care (01) ==
LOC: SDCO 09:19
DX: N39.41 Urge incontinence (principal); R35.0 Frequency of micturition; Z87.440 Personal history of urinary (tract) infections; Z87.891 Personal history of nicotine dependence
CPT/HCPCS: A4215; J0585; J0690; J2704; J7120

== ENCOUNTER → 2023-09-11 | Outpatient (CLI) | payer MEDICARE, OTHER ==
[~2023-09-11] MED LIST changes: +ATIVAN 0.50.5 MG/TAB PO; +IBU800 M1 PO; +LOPRESSOR 550 MG/TAB PO; -LR 1,000 ML IV SCH; +Lidocaine PF 2% (20 MG/ML) 5 ML VIAL ONE; +Midazolam 2 MG/2 ML VIAL ONE; +fentaNYL 50 MCG/ML 2 ML VIAL ONE
== END ==
LOC: MHCPAIN 11:57
DX: M47.817 Spondylosis without myelopathy or radiculopathy, lumbosacral region (principal); M54.50 Low back pain, unspecified
CPT/HCPCS: J0665; J2250; J3010

== ENCOUNTER → 2023-09-18 | Outpatient (CLI) | payer MEDICARE, OTHER | LOC: MHCPAIN 11:57 | DX: M47.817 Spondylosis without myelopathy or radiculopathy, lumbosacral region (principal); M54.50 Low back pain, unspecified | CPT/HCPCS: J0665; J2250; J3010 ==